=== PATIENT | male | born 1970 | race Caucasian/White ===

== ENCOUNTER 2016-10-13 11:04 | Inpatient (IN) | payer MEDICARE, BC ==
--- NOTE | ~2016-10-13 | HP ---
Unit #: [id number] #: [id number] Patient: ALONDRA DUMONT [id number] [facility]. [place], [place] [address] [id number] MR#: [id number] NAME: ALONDRA DUMONT ROOM: Age: 46 Sex: M Admission Date: 10/13/2016 : 1970 Attending Physician: Moody Burnham M.D. Referring Physician: Alberto Gonzalez M.D. Primary Care Physician: Alberto Gonzalez M.D. HISTORY AND PHYSICAL CHIEF COMPLAINT Abscess between scrotum and rectum. HISTORY OF PRESENT ILLNESS The patient is a 46-year-old male with a past medical history of HIV, anxiety, depression and alcohol abuse. The patient presented to the emergency department for evaluation of the above. The patient states that he was in his usual state of health until six days ago, when he noticed a bump in his peroneal area. He states that it has become increasingly painful and swollen. He denies any drainage from the area. He denies any fever. He has had decreased appetite, but no vomiting. He has intermittent loose stool that is not a new problem. Of note, the patient was hospitalized at [facility] [place] 03/13/2016 through 03/16/2016 for perirectal abscess. He underwent incision and drainage during that admission. Wound culture grew e-coli that was pansensitive, as well as propionibacterium species. PAST MEDICAL HISTORY 1. HIV followed by [facility] He states that his last viral load was undetectable and CD4 count was 1007, about 4 months ago (no records). 2. Anxiety and depression. 3. Recurrent perirectal abscess. 4. Alcohol abuse. PAST SURGICAL HISTORY Incision and drainage and sharp excisional debridement of perianal abscess. SOCIAL HISTORY The patient is a daily drinker. He typically drinks four to five shots daily, with his last drink being on the day prior to admission. He is a smoker. He denies illicit drug use. FAMILY HISTORY Notable for diabetes and hypertension. ALLERGIES Penicillin. HOME MEDICATIONS 1. Truvada 200/300 daily. 2. Intelence b.i.d. 3. MetroGel topically daily. 4. Albuterol inhaled p.r.n. Unit #: [id number] #: [id number] Patient: ALONDRA DUMONT 5. Lexapro 10 mg daily. 6. Ibuprofen 800 mg b.i.d. 7. Flexeril 10 mg daily. 8. Trazodone 50 mg daily p.r.n. REVIEW OF SYSTEMS A complete review of systems is negative except as indicated in the history of present illness. The patient also has several penile lesions that he is concerned about. They have been present for about a year. He has seen the [facility] physician regarding this issue and was told to keep the area clean. PHYSICAL EXAMINATION GENERAL: The patient is a male who is awake and alert, in no acute distress. VITALS: Temperature 98.4, pulse 127, respiratory rate 16, blood pressure 127/92. HEENT: The head is atraumatic. Mucous membranes are moist. NECK: Supple. Trachea midline. LUNGS: Clear to auscultation bilaterally with no increased work of breathing. HEART: Regular rate and rhythm. ABDOMEN: Soft and nontender with bowel sounds present in all four quadrants. EXTREMITIES: Nontender with no pedal edema. NEUROLOGIC: The patient is awake and alert. He follows commands. PSYCHIATRIC: Mood and affect are normal. The patient is cooperative. SKIN: The peroneal area demonstrates an area of warmth, erythema, induration and tenderness to palpation. The patient also has several nodular lesions involving the penis. DIAGNOSTIC STUDIES LABORATORY: Lactic acid is 1.8. CBC notable for hemoglobin 16.5, hematocrit 48, MCV 107. CMP notable for potassium of 2.9, AST 114, ALT 97, alkaline phosphatase 104. ASSESSMENT The patient is a 46-year-old male with 1. Peroneal abscess. 2. Hypokalemia. The patient received 60 mEq of potassium in the emergency department. 3. Transaminitis. Likely medication related. 4. HIV with a viral load, undetectable and CD4 count of 1,007 per the patient. He has been taking his antiretroviral medications as prescribed. 5. Anxiety/depression 6. Alcohol abuse with last drink being on the day prior to admission. 7. Tobacco abuse. 8. Penile lesions. PLAN 1. Admit to intermediate level. 2. N.p.o. until seen by [facility]. 3. Consult [facility] regarding peroneal abscess. 4. Blood cultures times two. 5. Levaquin and Flagyl IV pending further workup. 6. Check magnesium level. 7. Potassium/magnesium protocol. Unit #: [id number] #: [id number] Patient: ALONDRA DUMONT 8. CD4 count and HIV viral load. 9. Alcohol withdrawal protocol. 10. Librium 25 mg p.o. q.6 h. with first dose now. 11. contract project manager/social work consult regarding alcohol abuse. 12. P.r.n. morphine. 13. P.r.n. Zofran. SCDs. 14. Repeat labs in the morning. 15. Additional workup and consultants based on the above. Dictated by Corrie Chaparro/adrianne TD: 10/13/2016 13:11 JOB #: [id number] HISTORY AND PHYSICAL Page 1 of 1 X Shirin Herrera MD HISTORY AND PHYSICAL
--- NOTE | ~2016-10-13 | DS ---
Unit #: [id number] #: [id number] Patient: ALONDRA DUMONT [id number] [place], [place] [address] [id number] I MR#: [id number] NAME: ALONDRA DUMONT ROOM: 47 Age: 46 Sex: M Admission Date: 10/13/2016 : 1970 Discharge Date: 10/15/2016 Attending Physician: Shirin Herrera M.D. Referring Physician: Alberto Gonzalez M.D. Primary Care Physician: Alberto Gonzalez M.D. DISCHARGE SUMMARY FINAL DIAGNOSES 1. Peroneal abscess. 2. Alcohol abuse. 3. Hypokalemia. SECONDARY DIAGNOSES 1. HIV. 2. Anxiety/depression. 3. Recurrent peroneal abscess. CONSULTANTS [facility]. PROCEDURES PERFORMED Incision and drainage of his peroneal abscess. HOSPITAL COURSE The patient is a pleasant 36-year-old male who presented with peroneal abscess. This is a recurrent problem. He was seen and evaluated and managed by surgery. While he was here was started on CIWA protocol and given a banana bag. He was also given some Librium as well to manage his alcohol use detox. He was evaluated and deemed stable for discharge per recommendation of surgery. His admission here really was related to his peroneal abscess. He will be discharged in stable condition for outpatient followup with primary care physician. His potassium was repleted. DISCHARGE MEDICATIONS 1. Levaquin 500 mg p.o. daily for 7 days. 2. Flagyl 500 mg p.o. t.i.d. for 7 days. 3. Librium 25 mg p.o. t.i.d. p.r.n. 4. Albuterol 1 inhalation q.4 h. p.r.n. shortness of air. 5. Lexapro 10 mg p.o. daily. 6. Trazodone 50 mg p.o. daily p.r.n. 7. Truvada 200/300 mg 1 tablet p.o. daily. 8. Etravirine tablet, 1 tablet p.o. b.i.d. 9. MetroGel applied topically. 10. Motrin 800 mg p.o. b.i.d. p.r.n. 11. Protonix 40 mg p.o. daily. 12. Tums over the counter. 13. Flexeril 10 mg p.o. t.i.d. FOLLOWUP 1. He is scheduled to follow up with his primary care physician in the Unit #: [id number] #: [id number] Patient: ALONDRA DUMONT next three to five days. 2. Follow up with [facility]. Time spent coordinating discharge was about 24 minutes. Dictated by... Corrie Turk TD: 10/16/2016 09:52 JOB #: [id number] DISCHARGE SUMMARY Page 1 of 1 X Shira Fenton MD X DISCHARGE SUMMARY
--- NOTE | ~2016-10-13 | CO ---
Unit #: [id number] #: [id number] Patient: ALONDRA DUMONT [id number] [place], [place] [address] [id number] I MR#: [id number] NAME: ALONDRA DUMONT ROOM: 47 Age: 46 Sex: M Admission Date: 10/13/2016 : 1970 Attending Physician: Shirin Herrera M.D. Primary Care Physician: Alberto Gonzalez M.D. CONSULTATION REPORT BRIEF HISTORY Patient is a 46-year-old gentleman with pain in the perineum, approximately 6 days. He has had a similar problem with perirectal abscesses. Now presents with increasing pain, fevers and some vomiting. PAST HISTORY Hypertension. Does have HIV, cardiac dysfunction. SURGICAL HISTORY Perineal abscess. MEDICATIONS Home medication is Truvada. SOCIAL HISTORY Does smoke half pack per day. Does use alcohol routinely. FAMILY HISTORY Noncontributory. REVIEW OF SYSTEMS No cardiopulmonary complaints at this time. Else, 10 systems reviewed and negative. PHYSICAL EXAMINATION GENERAL: He is awake, alert and appropriate. VITAL SIGNS: Currently afebrile. HEENT: Unremarkable. NECK: Neck is supple. No JVD. Trachea midline. LUNGS: Clear to auscultation. Bilateral breath sounds symmetric. CARDIOVASCULAR: Regular rate and rhythm. ABDOMEN: His abdomen is soft, nontender, nondistended. I palpate no mass. No hepatosplenomegaly. EXTREMITIES: No clubbing, cyanosis or edema. PERINEUM: Perineal exam shows a 2 cm x 3 cm, just left of the midline, mass posterior to the scrotum. This is tender and fluctuant. ASSESSMENT Perirectal abscess. PLAN Recommend antibiotics and will plan for incision and drainage. Unit #: [id number] #: [id number] Patient: ALONDRA DUMONT Dictated by... Corrie Harden/boaz TD: 10/14/2016 10:40 JOB #: [id number] CONSULTATION REPORT Page 1 of 1 X Mark Mora MD X CONSULTATION REPORT
--- NOTE | ~2016-10-13 | OR ---
Unit #: [id number] #: [id number] Patient: ALONDRA DUMONT [id number] [place], [place] [address] [id number] I MR#: [id number] NAME: ALONDRA DUMONT ROOM: 46 Date of Procedure: 10/13/2016 Admission Date: 10/13/2016 Surgeon: Ravi Joe III, M.D. : 1970 Attending Physician: Shirin Herrera M.D. Referring Physician: Alberto Gonzalez M.D. Primary Care Physician: Alberto Gonzalez M.D. OPERATIVE REPORT PREOPERATIVE DIAGNOSIS Perineal abscess. POSTOPERATIVE DIAGNOSIS Perineal abscess. PROCEDURE PERFORMED Incision and drainage of perineal abscess. ANESTHESIA General. SPECIMEN Cultures sent to microbiology. COMPLICATIONS None apparent. INDICATIONS FOR PROCEDURE This is a 46-year-old gentleman, who has HIV and has a concurrent perineal abscess. He is here today for incision and drainage. DESCRIPTION OF PROCEDURE After consent was obtained, the patient was brought to the operating room and placed in the supine position. General anesthetic was administered, and he was then placed in the candy-cane dorsal lithotomy position. We prepped and draped the perineum in standard surgical fashion. I made a longitudinal incision along the pointing portion of the abscess and evacuated a thick purulent pocket. I irrigated this area and packed it with 1/2-inch iodoform gauze. He tolerated the procedure without any problems and returned to the recovery room in stable condition. Dictated by... Ravi Joe III, M.D. VCL/nika TD: 10/14/2016 14:11 JOB #: [id number] Unit #: [id number] #: [id number] Patient: ALONDRA DUMONT OPERATIVE REPORT Page 1 of 1 X Ravi Joe III, MD PROCEDURE OPERATIVE NOTE
[~2016-10-13 11:04] MED LIST: ALBUTEROL17 GM INH; CHLORHEXIDINE118 ML PO; CIPRO PO; CORTISONE14 GM; DAKIN'S MODIF1000 ML EXT; DESYREL50 MG PO; DIFLUCAN; FLEXERIL10 MG PO; GAUZE TOP; GENOPTIC5 ML OU; HYDROCHLOROTHIA25 MG PO; HYDROXYZINE HCL25 M1 PO; IBUPROFEN800 MG PO; INTELENCE200 MG PO; INTELENCE25 MG; LIBRIUM PO; LORTAB 10-3251 EACH PO; METRONIDAZOLE250 MG PO; MUPIROCIN0.9 GM; OMEPRAZOLE40 M1 PO; PHENERGAN25 M1 PO; ROSADAN45 G1; TRUVADA 200 MG1 EACH PO; TRUVADA TABLET1 TA1; [UNRECOGNIZED DRUG - OTHER]; [UNRECOGNIZED DRUG - OTHER]; [UNRECOGNIZED DRUG - OTHER] TOP
[2016-10-13] MEDS ORDERED: METROGEL60 GM TOP (11:41)
[2016-10-13] MEDS ORDERED: MOTRIN600 MG PO (11:42)
[2016-10-13] MEDS ORDERED: LEXAPRO PO (11:42)
[2016-10-13] MEDS ORDERED: ALBUTEROL20 ml INH (11:42)
[2016-10-13] MEDS ORDERED: FLEXERIL10 MG PO (11:43)
[2016-10-13] MEDS ORDERED: TRAZODONE PO (11:44)
[2016-10-13 11:52] LABS: BASOPHIL% 0.3 % (0-2.5); EOSINOPHIL# 0.1 X10e3 (0-0.7); EOSINOPHIL% 0.7 % (0.0-7.0); HEMOGLOBIN 16.5 gm/dL (13.0-16.0); LYMPHOCYTE# 1.2 X10e3 (1.0-3.5); LYMPHOCYTE% 16.8 % (17.0-45.0); MEAN CORPUSCULAR HEMOGLOBIN 36.8 PG (28-34); MEAN CORPUSCULAR HGB CONC 34.4 g/dL (30-36); MEAN PLATELET VOLUME 7.8 FL (6.5-11.5); MONOCYTE# 0.9 X10e3 (0-1.0); MONOCYTE% 12.4 % (3.0-12.0); NEUTROPHIL# 5.2 X10e3 (1.5-7.1); NEUTROPHIL% 69.8 % (40-75); PLATELET COUNT 143 X10e3 (140-420); RED BLOOD COUNT 4.48 X10e (3.90-5.60); RED CELL DISTRIBUTION WIDTH 15.8 % (11.0-15.5); WHITE BLOOD COUNT 7.4 X10e3 (4.0-10.5)
[2016-10-13 11:55] LABS: DIFF IND YES
[2016-10-13 12:09] LABS: ANISOCYTOSIS SL; PLATELET ESTIMATE NORMAL (NORMAL)
[2016-10-13 12:16] LABS: ALBUMIN SERUM 3.9 g/dL (3.5-5.0); ALKALINE PHOSPHATASE 104 U/L (32-92); ALT (SGPT) 97 U/L (10-40); AST (SGOT) 114 U/L (10-42); BILIRUBIN, DIRECT 0.4 mg/dL (0.0-0.2); BILIRUBIN,TOTAL 1.4 mg/dL (0.2-2.0); CALCIUM SERUM 9.3 mg/dL (8.4-10.2); CARBON DIOXIDE 28 mmol/L (22-31); CHLORIDE 100 mmol/L (100-111); CREATININE SERUM 0.9 mg/dL (0.6-1.4); GLOM FILT RATE Estimated 101.4 mL/min (>60); GLUCOSE FASTING 100 mg/dL (70-110); PROTEIN TOTAL SERUM 7.4 g/dL (6.0-8.3); SODIUM 138 mmol/L (135-145)
[2016-10-13 12:21] LABS: BLOOD UREA NITROGEN <5 mg/dL (9-23); BUN/CREATININE RATIO 5.55
[2016-10-13 12:22] LABS: POTASSIUM 2.9 mmol/L (3.5-5.1)
[2016-10-13 18:29] LABS: THYROID STIMULATING HORMONE 1.84 uIU/ml (0.34-5.60)
[2016-10-13 18:36] LABS: FREE THYROXIN (T4) 1.06 ng/dL (0.58-1.64)
[2016-10-14 02:35] LABS: URINE SOURCE CLEAN CATCH
[2016-10-14 02:37] LABS: URINE APPEARANCE CLEAR; URINE BILIRUBIN NEG (NEG); URINE BLOOD NEG (NEG); URINE COLOR YELLOW; URINE GLUCOSE 250 MG/DL (NEG); URINE KETONE 1+ (NEG); URINE LEUKOCYTE ESTERASE NEG (NEG); URINE NITRATE NEG (NEG); URINE PROTEIN NEG (NEG); URINE SPECIFIC GRAVITY 1.009 (1.003-1.035); URINE UROBILINOGEN 0.2 MG/DL (NEG)
[2016-10-14 02:48] LABS: AMPHETAMINE NEG (NEG); BARBITURATES NEG (NEG); BENZODIAZEPINES POS (NEG); COCAINE NEG (NEG); MARIJUANA NEG (NEG); OPIATES POS (NEG); TRICYCLIC ANTIDEPRESSANTS NEG (NEG); U METHADONE NEG (NEG)
[2016-10-14 03:36] LABS: HEMATOCRIT 43.9 % (38.0-50.0); HEMOGLOBIN 14.7 gm/dL (13.0-16.0); MEAN CELL VOLUME 108.7 FL (83-96); MEAN CORPUSCULAR HEMOGLOBIN 36.3 PG (28-34); MEAN CORPUSCULAR HGB CONC 33.4 g/dL (30-36); MEAN PLATELET VOLUME 7.8 FL (6.5-11.5); RED BLOOD COUNT 4.04 X10e (3.90-5.60); RED CELL DISTRIBUTION WIDTH 15.6 % (11.0-15.5); WHITE BLOOD COUNT 7.3 X10e3 (4.0-10.5)
[2016-10-14 03:52] LABS: PROTHROMBIN TIME (PATIENT) 10.4 SECONDS (9.6-11.5)
[2016-10-14 03:58] LABS: ALBUMIN SERUM 3.4 g/dL (3.5-5.0); BILIRUBIN,TOTAL 1.2 mg/dL (0.2-2.0); BUN/CREATININE RATIO 7.77; CALCIUM SERUM 8.7 mg/dL (8.4-10.2); CREATININE SERUM 0.9 mg/dL (0.6-1.4); GLOM FILT RATE Estimated 101.4 mL/min (>60); PROTEIN TOTAL SERUM 6.4 g/dL (6.0-8.3)
[2016-10-15 04:33] LABS: BASOPHIL% 0.7 % (0-2.5); DIFF IND NO; EOSINOPHIL# 0.1 X10e3 (0-0.7); EOSINOPHIL% 1.6 % (0.0-7.0); HEMATOCRIT 41.3 % (38.0-50.0); HEMOGLOBIN 13.9 gm/dL (13.0-16.0); LYMPHOCYTE# 1.9 X10e3 (1.0-3.5); LYMPHOCYTE% 32.9 % (17.0-45.0); MEAN CELL VOLUME 108.8 FL (83-96); MEAN CORPUSCULAR HEMOGLOBIN 36.6 PG (28-34); MEAN CORPUSCULAR HGB CONC 33.6 g/dL (30-36); MONOCYTE# 0.5 X10e3 (0-1.0); MONOCYTE% 8.8 % (3.0-12.0); NEUTROPHIL# 3.3 X10e3 (1.5-7.1); PLATELET COUNT 116 X10e3 (140-420); RED CELL DISTRIBUTION WIDTH 15.7 % (11.0-15.5); WHITE BLOOD COUNT 5.9 X10e3 (4.0-10.5)
[2016-10-15 04:48] LABS: BUN/CREATININE RATIO 6.66; CALCIUM SERUM 8.3 mg/dL (8.4-10.2); CREATININE SERUM 1.2 mg/dL (0.6-1.4); GLOM FILT RATE Estimated 71.6 mL/min (>60); POTASSIUM 3.2 mmol/L (3.5-5.1)
[2016-10-15] MEDS ORDERED: LIBRIUM25 M1 PO (10:01)
[2016-10-15] MEDS ORDERED: PROTONIX40 M1 PO (10:04)
[2016-10-15] MEDS ORDERED: TUMS500 MG PO (10:05)
[2016-10-15] MEDS ORDERED: ALBUTEROL20 ml INH (10:08)
[2016-10-15] MEDS ORDERED: LEVAQUIN PO (10:11)
[2016-10-15] MEDS ORDERED: FLAGYL PO (10:13)
[2016-10-15 11:16] LABS: HIV1 LOG COPIES/ML <1.30 (<1.30); HIV1COPIES/ML <20 (<20)
[2016-10-17 19:18] LABS: CD4 % (PNL) 55 % (30-61)
== END 2016-10-15 12:05 | disposition home health service (06) | DRG 579 ==
LOC: CED 11:04 → CEDOF 12:55 → C4C 16:58
PROVIDERS: Emergency Medicine; Family Medicine; Surgery
PROC: HZ2ZZZZ Detoxification Services for Substance Abuse Treatment (ICD-10-PCS; 2016-10-13)
PROC: 0J9B0ZZ Drainage of Perineum Subcutaneous Tissue and Fascia, Open Approach (ICD-10-PCS; principal; 2016-10-13 03:00)
DX: L02.215 Cutaneous abscess of perineum (principal); B20 Human immunodeficiency virus [HIV] disease; F10.10 Alcohol abuse, uncomplicated; E87.6 Hypokalemia; F41.9 Anxiety disorder, unspecified; F32.9 Major depressive disorder, single episode, unspecified; Z88.0 Allergy status to penicillin; F17.210 Nicotine dependence, cigarettes, uncomplicated; L98.8 Other specified disorders of the skin and subcutaneous tissue; R74.0 Nonspecific elevation of levels of transaminase and lactic acid dehydrogenase [LDH]; Z82.49 Family history of ischemic heart disease and other diseases of the circulatory system; Z83.3 Family history of diabetes mellitus
CPT/HCPCS: 36415; 80048; 80053; 80076; 80307; 81003; 83605; 83735; 84132; 84439; 84443; 85025; 85027; 85610; 86360; 86361; 86592; 87040; 87070; 87075; 87205; 87536; 94760; 99285; J1100; J1956; J2060; J2250; J2270; J2405; J3010; J3411; J7042

== ENCOUNTER 2017-01-16 13:03 | Emergency (ER) | payer MEDICARE, BC ==
[~2017-01-16] VITALS: Ht 167.6 cm; Wt 68.0 kg
--- NOTE | ~2017-01-16 | CR72 ---
[facility] A Service of [facility] RADIOLOGY TEXT RESULTS PATIENT: ALONDRA DUMONT LOCATION: [facility] : [birth year] UNIT #: [id number] AGE: [address]: Staci Bray MD SEX: M ORDER DR: [id number] [facility] [address] [place], [place] [address] [id number] MR#: [id number] Acc #: [id number] NAME: ALONDRA DUMONT : 1970 SEX: M STUDY DATE/TIME: 01/16/2017 15:01 UNIT: [facility] ROOM: STUDY DESCRIPTION: CR Chest Single View Portable Attending Physician: Staci Bray M.D. Ordering Physician: Staci Bray M.D. Primary Care Physician: Alberto Gonzalez M.D. MEDICAL IMAGING REPORT This report is preliminary unless electronic signature is present EXAM Portable chest 01/16 INDICATIONS Chest pain, shortness of air today. History of hypertension. COMPARISON 12/22/2008 FINDINGS A single AP portable view of the chest shows both lungs to be clear. The heart is normal in size. The mediastinal contour is normal. No significant bone abnormalities are seen. IMPRESSION Normal portable chest. Dictated by... Sandoval Villegas Jr., M.D. THIS IS AN ELECTRONICALLY VERIFIED REPORT Sandoval Villegas Jr., M.D. at 01/17/2017 4:34 PM RLK/codie TD: 01/16/2017 16:55 JOB #: [id number] MEDICAL IMAGING REPORT Page 1 of 1 COPY
--- NOTE | ~2017-01-16 | EKG ---
PATIENT: ALONDRA DUMONT UNIT #: [id number] Ventricular Rate: 97 BPM Atrial Rate: 97 BPM P-R Interval: 104 ms QRS Duration: 78 ms Q-T Interval: 354 ms QTC Calculation(Bezet): 449 ms P Odell: 28 degrees Calculated R Odell: 74 degrees Calculated T Odell: 40 degrees Diagnosis Line: Sinus rhythm with short AR Diagnosis Line: Otherwise normal ECG Diagnosis Line: When compared with ECG of 16-OCT-2013 22:14, Diagnosis Line: No significant change was found Diagnosis Line: Confirmed by TATI CHAN MD ([id number]) on 01/17/2017 Diagnosis Line: 7:37:16 PM INTERPRETING MD: ROCIO KELLEY
[~2017-01-16 13:03] MED LIST changes: +ALBUTEROL20 ml INH; +FLAGYL PO; +LEVAQUIN PO; +LEXAPRO PO; +LIBRIUM25 M1 PO; +METROGEL60 GM TOP; +MOTRIN600 MG PO; +PROTONIX40 M1 PO; +TRAZODONE PO; +TUMS500 MG PO
[2017-01-16 14:25] LABS: BASOPHIL% 0.4 % (0-2.5); EOSINOPHIL% 0.9 % (0.0-7.0); HEMATOCRIT 47.8 % (38.0-50.0); HEMOGLOBIN 16.5 gm/dL (13.0-16.0); LYMPHOCYTE# 1.5 X10e3 (1.0-3.5); MEAN CELL VOLUME 98.9 FL (83-96); MEAN CORPUSCULAR HEMOGLOBIN 34.1 PG (28-34); MEAN CORPUSCULAR HGB CONC 34.4 g/dL (30-36); MEAN PLATELET VOLUME 7.7 FL (6.5-11.5); MONOCYTE# 0.4 X10e3 (0-1.0); MONOCYTE% 7.5 % (3.0-12.0); NEUTROPHIL# 3.3 X10e3 (1.5-7.1); NEUTROPHIL% 62.2 % (40-75); PLATELET COUNT 123 X10e3 (140-420); RED BLOOD COUNT 4.83 X10e (3.90-5.60); RED CELL DISTRIBUTION WIDTH 14.1 % (11.0-15.5); WHITE BLOOD COUNT 5.3 X10e3 (4.0-10.5)
[2017-01-16 14:26] LABS: DIFF IND NO
[2017-01-16 14:43] LABS: POC - CKMB 1.2 ng/mL (0.0-7.9); POC - TROPONIN <0.05 ng/mL (<=0.05)
[2017-01-16 14:47] LABS: ALBUMIN SERUM 4.7 g/dL (3.5-5.0); BILIRUBIN, DIRECT 0.2 mg/dL (0.0-0.2); BILIRUBIN,INDIRECT 0.8 mg/dL (0.0-0.9); BUN/CREATININE RATIO 7.69; CALCIUM SERUM 9.5 mg/dL (8.4-10.2); CREATININE SERUM 1.3 mg/dL (0.6-1.4); POTASSIUM 4.2 mmol/L (3.5-5.1)
[2017-01-16 16:26] LABS: POC - CKMB 1.3 ng/mL (0.0-7.9); POC - TROPONIN <0.05 ng/mL (<=0.05)
== END 2017-01-16 17:05 | disposition home or self-care (01) ==
LOC: CED 13:03
PROVIDERS: Emergency Medicine
DX: R07.89 Other chest pain (principal); F41.9 Anxiety disorder, unspecified; B20 Human immunodeficiency virus [HIV] disease; F32.9 Major depressive disorder, single episode, unspecified; F17.210 Nicotine dependence, cigarettes, uncomplicated; Z88.0 Allergy status to penicillin; Z79.899 Other long term (current) drug therapy
CPT/HCPCS: 36415; 71010; 80048; 80076; 82553; 84484; 85025; 93005; 96374; 99285; J2060